=== PATIENT | male | born 1960 | race African-American/Black ===

== ENCOUNTER 2016-11-20 17:50 | Inpatient (IN) | payer MEDICAID ==
[~2016-11-20] VITALS: Ht 170.2 cm; Wt 58.8 kg
[2016-11-20] MEDS ORDERED: ZOLPIDEM TARTRATE 10 MG TABLET PO PRN (20:45)
[2016-11-20 21:07] VITALS: BP 124/82
[2016-11-20] MEDS ORDERED: INFLUENZA VIRUS VACCINE QVS 2016-17 (3YR+)/PF 60 MCG/0.5 ML SYRINGE IM ONE (21:45)
[2016-11-20] MEDS ORDERED: PNEUMOCOCCAL VACCINE POLYVALENT 0.5 ML VIAL [PPSV23] IM ONE (21:45)
[2016-11-21 06:43] VITALS: BP 118/80
[2016-11-21 07:38] LABS: BASOPHILS % (AUTO) 0.5 % (0.0-2.0); EOSINOPHILS % (AUTO) 3.7 % (1.0-6.0); HEMATOCRIT 34.1 % (41-53); HEMOGLOBIN 11.1 g/dL (13.5-17.5); LYMPHOCYTES # (AUTO) 1.9 K/uL (1.0-4.8); LYMPHOCYTES % (AUTO) 29.3 % (22.0-44.0); MEAN CORPUSCULAR HEMOGLOBIN 28.4 pg (26.0-34.0); MEAN CORPUSCULAR HGB CONC 32.6 G/dL (31.0-37.0); MEAN CORPUSCULAR VOLUME 87 fL (80-100); MONOCYTES # (AUTO) 0.4 K/uL (0.1-1.0); MONOCYTES % (AUTO) 6.4 % (2.0-9.0); NEUTROPHILS # (AUTO) 3.9 K/uL (1.8-7.7); NEUTROPHILS % (AUTO) 60.1 % (40.0-70.0); PLATELET COUNT (AUTO) 173 K/uL (150-450); RED BLOOD CELL COUNT(AUTO) 3.92 MIL/uL (4.50-5.90); RED CELL DISTRIBUTION WIDTH 13.8 % (11.5-14.5); WHITE BLOOD COUNT (AUTO) 6.5 K/uL (4.5-11.0)
[2016-11-21 07:49] LABS: HEMOGLOBIN A1C 5.5 % (4.5-6.2)
[2016-11-21 08:04] VITALS: BP 124/73
[2016-11-21 08:18] LABS: ALANINE AMINOTRANSFERASE 33 U/L (12-78); ALBUMIN 3.5 g/dL (3.4-5.0); ANION GAP 7 mmol/L (8-16); ASPARTATE AMINOTRANSFERASE 40 U/L (15-37); BILIRUBIN,TOTAL 0.4 mg/dL (0.1-1.0); CALCIUM, TOTAL 8.7 mg/dL (8.8-10.5); CARBON DIOXIDE 25 mmol/L (22-29); CHLORIDE 108 mmol/L (98-107); CHOL/HDL RATIO 2.7 (4.2-7.3); CREATININE 0.78 mg/dL (0.60-1.30); GLOMERULAR FILTR. RATE CALC > 60 mL/min (>60); POTASSIUM 4.5 mmol/L (3.5-5.1); SODIUM SERUM 140 mmol/L (136-145); THYROID STIMULATING HORMONE 2.28 uIU/mL (0.36-3.74); TOTAL PROTEIN, SERUM 5.8 g/dL (6.4-8.2); UREA NITROGEN, BLOOD 15 mg/dL (7-18)
[2016-11-21] MEDS: LORazepam 2 MG TABLET PO PRN ×2 (09:20→17:12)
[2016-11-21] MEDS: HALOPERIDOL 5 MG TABLET PO PRN ×2 (09:20→17:11)
[2016-11-21 16:00] VITALS: BP 125/81
[2016-11-21] MEDS ORDERED: ACETAMINOPHEN 325 MG TABLET PO PRN (16:15)
[2016-11-21] MEDS ORDERED: IBUPROFEN 400 MG TABLET PO PRN (16:15)
[2016-11-21] MEDS: FERROUS SULFATE 325 MG EC TABLET PO SCH (17:11)
[2016-11-21] MEDS ORDERED: OLANZapine 5 MG TABLET PO SCH (21:00)
[2016-11-22] MEDS: FERROUS SULFATE 325 MG EC TABLET PO SCH ×3 (06:30→17:15)
[2016-11-22 07:03] VITALS: BP 125/85
[2016-11-22 08:20] VITALS: BP 123/80
[2016-11-22 08:40] LABS: HEMOGLOBIN A1C 5.5 % (4.5-6.2)
[2016-11-22 09:00] LABS: CHOL/HDL RATIO 2.9 (4.2-7.3); THYROID STIMULATING HORMONE 3.67 uIU/mL (0.36-3.74)
[2016-11-22] MEDS: FLUoxetine HCL 20 MG CAPSULE PO SCH (09:53)
[2016-11-22] MEDS: LORazepam 2 MG TABLET PO PRN (12:48)
[2016-11-22 12:50] VITALS: BP 127/76
[2016-11-22 16:05] VITALS: BP 132/72
[2016-11-22] MEDS ORDERED: ACETAMINOPHEN 325 MG TABLET PO ONE (16:45)
[2016-11-22] MEDS ORDERED: OLANZapine 10 MG TABLET PO SCH (21:00)
[2016-11-23] MEDS ORDERED: DiphenhydrAMINE HCL 50 MG/ML VIAL IM ONE (06:30)
[2016-11-23] MEDS ORDERED: HALOPERIDOL LACTATE 5 MG/ML VIAL IM ONE (06:30)
[2016-11-23] MEDS ORDERED: LORazepam 2 MG/ML VIAL IM ONE (06:30)
[2016-11-23] MEDS: FERROUS SULFATE 325 MG EC TABLET PO SCH ×3 (06:59→17:06)
[2016-11-23 08:04] VITALS: BP 133/87
[2016-11-23] MEDS ORDERED: OLAN10TA3 PO (08:51)
[2016-11-23] MEDS ORDERED: FERR-89 PO (08:51)
[2016-11-23] MEDS ORDERED: FLUO-191 PO (08:51)
[2016-11-23] MEDS: FLUoxetine HCL 20 MG CAPSULE PO SCH (09:22)
[2016-11-23 16:37] VITALS: BP 132/75
== END 2016-11-23 17:15 | disposition home or self-care (01) | DRG 753 ==
LOC: B3A 20:35
PROVIDERS: ADMIT Psychiatry & Neurology Psychiatry; ATTEND Psychiatry & Neurology Psychiatry
DX: F31.64 Bipolar disorder, current episode mixed, severe, with psychotic features (principal); R45.851 Suicidal ideations; I10 Essential (primary) hypertension; D64.9 Anemia, unspecified; S60.811A Abrasion of right wrist, initial encounter; F10.10 Alcohol abuse, uncomplicated; S60.812A Abrasion of left wrist, initial encounter; S80.211A Abrasion, right knee, initial encounter; W57.XXXA Bitten or stung by nonvenomous insect and other nonvenomous arthropods, initial encounter; M19.90 Unspecified osteoarthritis, unspecified site; F15.10 Other stimulant abuse, uncomplicated; F12.10 Cannabis abuse, uncomplicated; Z71.51 Drug abuse counseling and surveillance of drug abuser; Y93.89 Activity, other specified; Y92.89 Other specified places as the place of occurrence of the external cause; Y99.8 Other external cause status; Z71.41 Alcohol abuse counseling and surveillance of alcoholic; Z59.0 Homelessness; Z88.0 Allergy status to penicillin; Z28.21 Immunization not carried out because of patient refusal
CPT/HCPCS: 83036; 84439; 84443; 87081; 90471; J1200; J1630; J2060